=== PATIENT | female | born 1975 | race Caucasian/White ===

== ENCOUNTER 2019-06-07 17:43 | Emergency (ER) | payer SELFPAY ==
[~2019-06-07] VITALS: Ht 167.6 cm; Wt 94.6 kg
[~2019-06-07 17:43] MED LIST: HYDR-843 PO
[2019-06-07 18:40] VITALS: BP 168/87; PULSE 76; RESP 18; Ht 167.6 cm; Wt 94.6 kg
[2019-06-07] MEDS ORDERED: SOD CHLORIDE 0.9% 1,000 ML IV STA (19:54)
[2019-06-07] MEDS ORDERED: LORAZEPAM 1 MG TAB PO ONE (20:00)
[2019-06-07] MEDS ORDERED: ACETAMINOPHEN 325 MG TAB PO ONE (20:00)
== END 2019-06-07 21:36 | disposition home or self-care (01) ==
LOC: FTE 17:43
DX: F41.1 Generalized anxiety disorder (principal)
CPT/HCPCS: 36415; 70450; 80053; 81001; 81025; 85025; 93005; 99285; J7030